=== PATIENT | female | born 2000 | race Caucasian/White ===

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

== ENCOUNTER → 2021-08-20 | Outpatient (CLI) | payer BC | END | disposition home or self-care (01) | LOC: LABWHC1 10:23 | PROVIDERS: ATTEND Orthopaedic Surgery | DX: S90.31XD Contusion of right foot, subsequent encounter (principal); S92.214D Nondisplaced fracture of cuboid bone of right foot, subsequent encounter for fracture with routine healing; V89.2XXD Person injured in unspecified motor-vehicle accident, traffic, subsequent encounter | CPT/HCPCS: 36415; 82306 ==

== ENCOUNTER → 2024-01-05 | Outpatient (CLI) | payer BC ==
[2024-01-05 15:37] LABS: ALT 11 U/L (8-44); AST 16 U/L (13-35); HCG,Quantitative Serum <3.0 mIU/mL (0.0-6.0)
[2024-01-05 15:57] LABS: Basophils # (A) 0.07 X 10*3/uL (0.00-0.10); Basophils % (A) 0.9 %; Eosinophils # (A) 0.06 X 10*3/uL (0.04-0.35); Eosinophils % (A) 0.8 %; HCT 41.1 % (37.2-46.3); HGB 13.9 g/dL (12.0-15.0); Lymphocytes # (A) 2.25 X 10*3/uL (0.90-5.00); Lymphocytes % (A) 28.2 %; MCH 31.6 pg (27.0-32.0); MCHC 33.8 g/dL (32.0-37.0); MCV 93.4 FL (80.0-97.0); Mean Platelet Volume 10.4 FL (9.5-12.2); Monocytes # (A) 0.65 X 10*3/uL (0.20-1.00); Monocytes % (A) 8.2 %; NRBC Per 100 WBC 0 X 10*3/uL (0.00-0.01); Neutrophils # (A) 4.92 X 10*3/uL (1.80-7.70); Neutrophils % (A) 61.6 %; Platelet Count 369 X 10*3/uL (140-440); RDW 12.2 % (11.5-14.5); WBC 7.97 X 10*3/uL (4.50-10.00)
== END | disposition home or self-care (01) ==
LOC: LABWHC1 09:56
PROVIDERS: ATTEND Nurse Practitioner
DX: L70.0 Acne vulgaris (principal); Z79.899 Other long term (current) drug therapy
CPT/HCPCS: 36415; 82465; 84450; 84460; 84478; 84702; 85025

== ENCOUNTER → 2024-02-07 | Outpatient (CLI) | payer BC | END | disposition home or self-care (01) | LOC: LABWHC1 15:39 | DX: L70.0 Acne vulgaris (principal); Z79.899 Other long term (current) drug therapy | CPT/HCPCS: 36415; 82465; 84478 ==

== ENCOUNTER → 2024-04-03 | Outpatient (CLI) | payer BC ==
[2024-04-03 15:03] LABS: Basophils # (A) 0.06 X 10*3/uL (0.00-0.10); Basophils % (A) 0.6 %; Eosinophils # (A) 0.04 X 10*3/uL (0.04-0.35); Eosinophils % (A) 0.4 %; HCT 43.5 % (37.2-46.3); HGB 14.3 g/dL (12.0-15.0); Lymphocytes # (A) 2.03 X 10*3/uL (0.90-5.00); Lymphocytes % (A) 19.5 %; MCHC 32.9 g/dL (32.0-37.0); MCV 94.2 FL (80.0-97.0); Mean Platelet Volume 10.6 FL (9.5-12.2); Monocytes # (A) 0.77 X 10*3/uL (0.20-1.00); Monocytes % (A) 7.4 %; NRBC Per 100 WBC 0 X 10*3/uL (0.00-0.01); Neutrophils % (A) 71.8 %; Platelet Count 386 X 10*3/uL (140-440); RBC 4.62 X 10*6/uL (4.10-5.20); RDW 12.4 % (11.5-14.5); WBC 10.43 X 10*3/uL (4.50-10.00)
[2024-04-03 15:52] LABS: ALT 12 U/L (8-44); AST 15 U/L (13-35); HCG,Quantitative Serum <3.0 mIU/mL (0.0-6.0)
== END | disposition home or self-care (01) ==
LOC: LABWHC1 10:51
PROVIDERS: ATTEND Dermatology Procedural Dermatology
DX: L70.0 Acne vulgaris (principal)
CPT/HCPCS: 36415; 82465; 84450; 84460; 84478; 84702; 85025

== ENCOUNTER → 2024-10-23 | Outpatient (CLI) | payer BC ==
[2024-10-23 03:00] LABS: ALT 24 U/L (4-34); AST 25 U/L (14-36); African American GFR (CKD) >90 (>60 ml/min/1.73 sqM); Albumin 4.9 g/dL (3.5-5.0); Alkaline Phosphatase 61 U/L (38-126); Anion Gap 12 mmol/L; Blood Urea Nitrogen 11 mg/dL (7-17); Carbon Dioxide 24 mmol/L (22-30); Chloride 103 mmol/L (98-107); Glucose 105 mg/dL (74-99); Non-African American GFR(CKD) >90 (>60 ml/min/1.73 sqM); Potassium 3.8 mmol/L (3.5-5.1); Sodium 139 mmol/L (137-145); Total Bilirubin 0.4 mg/dL (0.2-1.3); Total Protein 7.6 g/dL (6.3-8.2)
== END | disposition home or self-care (01) ==
LOC: EC 00:32
PROVIDERS: ATTEND Internal Medicine Gastroenterology
DX: R16.0 Hepatomegaly, not elsewhere classified (principal)
CPT/HCPCS: 36415; 80053

== ENCOUNTER 2024-12-23 07:04 | Emergency (ER) | payer BC ==
--- NOTE | 2024-12-23 07:29 | ED ---
General Adult HPI - General Chief complaint: Abdominal Pain Stated complaint: Abd Pain Time Seen by Provider: 12/23/24 07:06 Source: patient Mode of arrival: ambulatory Limitations: no limitations - History of Present Illness Initial comments: Dictation was produced using [employer] dictation software. please excuse any grammatical, word or spelling errors. Chief Complaint: 24-year-old female with several hours of abdominal pain History of Present Illness: Patient 24-year-old female presents emergency department several hours of abdominal pain. Patient has been ongoing abdominal issues for the last several months. Has been seeing GI doctor was told that she has irritable bowel syndrome. Patient complaining of lower abdominal pain for last 2 to 3 hours. States that the pain is more severe than her usual abdominal pain. She has been trying to have a bowel movement however unable to do so. States that pain is so severe that it is causing her to lay on the floor. She has been nauseated but has not had any significant vomiting. Denies any fever chills or night sweats. Patient denies . The ROS documented in this emergency department record has been reviewed and confirmed by me. Those systems with pertinent positive or negative responses have been documented in the HPI. All other systems are other negative and/or noncontributory. - Related Data Home Medications Medication Instructions Recorded Confirmed Dextroamphetamine/Amphetamine 15 mg PO BID 12/21/20 12/31/20 [Adderall] Non Formulary Drug 1 each PO ONCE 12/21/20 12/31/20 EPINEPHrine (Auto Inject) [Epipen] 0.3 mg IM ONCE PRN 12/31/20 12/31/20 Mirtazapine [Remeron] 15 mg PO HS 12/31/20 12/31/20 Allergies Allergy/AdvReac Type Severity Reaction Status Date / Time Milk Containing Products Allergy Swelling Verified 12/23/24 07:06 (Dairy) [Dairy] venom-honey bee Allergy Anaphylaxis Verified 12/23/24 07:06 [bee venom (honey bee)] Review of Systems ROS Statement: Those systems with pertinent positive or pertinent negative responses have been documented in the HPI. ROS Other: All systems not noted in ROS Statement are negative. Past Medical History Past Medical History: No Reported History Additional Past Medical History / Comment(s): popliteal cyst, IBS History of Any Multi-Drug Resistant Organisms: None Reported Past Surgical History: No Surgical Hx Reported Additional Past Surgical History / Comment(s): dental extraction -wisdom teeth Past Anesthesia/Blood Transfusion Reactions: No Reported Reaction Past Psychological History: ADD/ADHD Smoking Status: Never smoker Past Alcohol Use History: None Reported Past Drug Use History: None Reported - Past Family History Mother Family Medical History: No Reported History General Exam - General Exam Comments Initial Comments: PHYSICAL EXAM: General Impression: Alert and oriented x3, not in acute distress HEENT: Normocephalic atraumatic, extra-ocular movements intact, pupils equal and reactive to light bilaterally, mucous membranes moist. Cardiovascular: Heart regular rate and rhythm Chest: Able to complete full sentences, no retractions, no tachypnea Abdomen: abdomen soft, lower palpatory abdominal tenderness non-distended, no organomegaly Musculoskeletal: Pulses present and equal in all extremities, no peripheral rona ma Motor: no focal deficits noted Neurological: CN II-XII grossly intact, no focal motor or sensory deficits noted Skin: Intact with no visualized rashes Psych: Normal affect and mood Limitations: no limitations Course Vital Signs 12/23/24 12/23/24 07:07 09:46 Temperature 98 F Pulse Rate 79 84 Respiratory 18 16 Rate Blood Pressure 131/81 118/61 O2 Sat by Pulse 100 100 Oximetry Medical Decision Making - Medical Decision Making Was pt. sent in by a medical professional or institution ([facility], CIN[employer] OR THEATRE MANAGER, urgent care, hospital, or fci...) When possible be specific @ -No Did you speak to anyone other than the patient for history (EMS, parent, family, police, friend...)? What history was obtained from this source @ -No Did you review nursing and triage notes (agree or disagree)? Why? @ -I reviewed and agree with nursing and triage notes Were old charts reviewed (outside hosp., previous admission, EMS record, old EKG, old radiological studies, urgent care reports/EKG's, fci records)? Report findings @ -No old charts were reviewed Differential Diagnosis (chest pain, altered mental status, abdominal pain women, abdominal pain men, vaginal bleeding, musculoskeletal, weakness, fever, dyspnea, syncope, headache, dizziness, GI bleed, back pain, seizure, CVA, palpatations, mental health)? @ -Differential Abdominal Pain Women: Appendicitis, Cholecystitis, diverticulosis, ischemic bowel, pancreatitis, hepatitis, UTI, gastroenteritis, AAA, incarcerated hernia, bowel obstruction, constipation, inflammatory bowel, hepatitis, peptic ulcer disease, splenic infarction, perforated viscus, vulvitis, ovarian torsion, PID, kidney stone, placenta abruption, this is not meant to be an all-inclusive list EKG interpreted by me (3pts min.). @ -None done X-rays interpreted by me (1pt min.). @ -None done CT interpreted by me (1pt min.). @ -CT abdomen pelvis shows peritoneal fluid likely secondary to ruptured ovarian cyst U/S interpreted by me (1pt. min.). @ -None done What testing was considered but not performed or refused? (CT, X-rays, U/S, labs)? Why? @ -None What meds were considered but not given or refused? Why? @ -None Was smoking cessation discussed for >3mins.? @ -No Were there social determinants of health that impacted care today? How? (Homelessness, low income, unemployed, alcoholism, drug addiction, transportation, low edu. Level, literacy, decrease access to med. care, prison, rehab)? @ -No Was there de-escalation of care discussed even if they declined (Discuss DNR or withdrawal of care, Hospice)? DNR status @ -No What co-morbidities impacted this encounter? (DM, HTN, Smoking, COPD, CAD, Canc er, CVA, ARF, Chemo, Hep., AIDS, mental health diagnosis, sleep apnea, morbid obesity)? @ -None Was patient admitted / discharged? Hospital course, mention meds given and route, prescriptions, significant lab abnormalities, going to OR and other pertinent info. @ -24-year-old non female presents emergency department abdominal pain. Was told that she had IBS by GI specialist. Laboratory evaluation is unremarkable. CT abdomen shows fluid in the cul-de-sac likely representing ruptured ovarian cyst. Reevaluated bedside stable condition. Advised follow-up with diversional therapist Did you discuss the management of the patient with other professionals (professionals i.e. , PA, [employer]IN[employer] THEATRE MANAGER, lab, RT, psych nurse, licensed clinical social worker, fabric stretcher, teacher, property and supply officer, home health care case manager)? Give summary @ -No Was critical care preformed (if so, how long)? @ -No Undiagnosed new problem with uncertain prognosis? @ -No Drug Therapy requiring intensive monitoring for toxicity (Heparin, Nitro, Insulin, Cardizem)? @ -No Were any procedures done? @ -No Diagnosis/symptom? Acute, or Chronic, or Acute on Chronic? Uncomplicated (without systemic symptoms) or Complicated (systemic symptoms)? @ -Ruptured ovarian cyst Side effects of treatment? @ -No Exacerbation, Progression, or Severe Exacerbation? @ -No Poses a threat to life or bodily function? How? (Chest pain, [place], [place], pneumonia, PE, COPD, DKA, ARF, appy, cholecystitis, CVA, Diverticulitis, Homicidal, Suicidal, threat to staff... and all critical care pts) @ -No - Lab Data Result diagrams: 12/23/24 07:31 12/23/24 07:31 Lab Results 12/23/24 12/23/24 Range/Units 07:31 07:31 WBC 11.17 H (4.50-10.00) 10*3/uL RBC 4.38 (4.10-5.20) 10*6/uL Hgb 13.7 (12.0-15.0) g/dL Hct 39.2 (37.2-46.3) % MCV 89.5 (80.0-97.0) fL MCH 31.3 (27.0-32.0) pg MCHC 34.9 (32.0-37.0) g/dL Plt Count 361 (140-440) 10*3/uL MPV 9.4 L (9.5-12.2) fL Immature Gran % (Auto) 0.4 % Neutrophils % 50.4 % Lymphocytes % 37.4 % Monocytes % 10.2 % Eosinophils % 1.1 % Basophils % 0.5 % Immature Gran # 0.04 (0.00-0.04) 10*3/uL Neutrophils # 5.63 (1.80-7.70) 10*3/uL Lymphocytes # 4.18 (0.90-5.00) 10*3/uL Monocytes # 1.14 H (0.20-1.00) 10*3/uL Eosinophils # 0.12 (0.04-0.35) 10*3/uL Basophils # 0.06 (0.00-0.10) 10*3/uL Sodium 138 (137-145) mmol/L Potassium 4.0 (3.5-5.1) mmol/L Chloride 104 (98-107) mmol/L Carbon Dioxide 23 (22-30) mmol/L Anion Gap 11 mmol/L BUN 8 (7-17) mg/dL Creatinine 0.61 (0.52-1.04) mg/dL Est GFR (CKD-EPI)AfAm >90 (>60 ml/min/1.73 sqM) Est GFR (CKD-EPI)NonAf >90 (>60 ml/min/1.73 sqM) Glucose 91 (74-99) mg/dL Calcium 9.9 (8.4-10.2) mg/dL Total Bilirubin 0.6 (0.2-1.3) mg/dL AST 20 (14-36) U/L ALT 11 (4-34) U/L Alkaline Phosphatase 53 (38-126) U/L Total Protein 7.1 (6.3-8.2) g/dL Albumin 4.6 (3.5-5.0) g/dL Lipase 173 (23-300) U/L HCG, Quant <2.4 mIU/mL Disposition Clinical Impression: Ruptured ovarian cyst Disposition: HOME SELF-CARE Condition: Fair Instructions (If sedation given, give patient instructions): Ruptured Ovarian Cyst (ED) Is patient prescribed a controlled substance at d/c from ED?: No Referrals: Keri Brand MD [STAFF PHYSICIAN] - 1-2 days Time of Disposition: 10:22
[2024-12-23] MEDS: SODIUM CHLORIDE 0.9% 1,000 ML IV STA (07:36)
[2024-12-23] MEDS: ONDANSETRON 4 MG/2 ML VIAL IVP STA (07:38)
[2024-12-23] MEDS: MORPHINE SULFATE 2 MG/ML SYRINGE IVP PRN (07:44)
[2024-12-23 07:47] LABS: Basophils # (A) 0.06 10*3/uL (0.00-0.10); Basophils % (A) 0.5 %; Eosinophils # (A) 0.12 10*3/uL (0.04-0.35); Eosinophils % (A) 1.1 %; HCT 39.2 % (37.2-46.3); HGB 13.7 g/dL (12.0-15.0); Lymphocytes # (A) 4.18 10*3/uL (0.90-5.00); Lymphocytes % (A) 37.4 %; MCH 31.3 pg (27.0-32.0); MCHC 34.9 g/dL (32.0-37.0); MCV 89.5 fL (80.0-97.0); Mean Platelet Volume 9.4 fL (9.5-12.2); Monocytes # (A) 1.14 10*3/uL (0.20-1.00); Monocytes % (A) 10.2 %; Neutrophils # (A) 5.63 10*3/uL (1.80-7.70); Neutrophils % (A) 50.4 %; Platelet Count 361 10*3/uL (140-440); RBC 4.38 10*6/uL (4.10-5.20); WBC 11.17 10*3/uL (4.50-10.00)
[2024-12-23 07:57] LABS: ALT 11 U/L (4-34); AST 20 U/L (14-36); African American GFR (CKD) >90 (>60 ml/min/1.73 sqM); Albumin 4.6 g/dL (3.5-5.0); Alkaline Phosphatase 53 U/L (38-126); Anion Gap 11 mmol/L; Blood Urea Nitrogen 8 mg/dL (7-17); Calcium 9.9 mg/dL (8.4-10.2); Carbon Dioxide 23 mmol/L (22-30); Chloride 104 mmol/L (98-107); Glucose 91 mg/dL (74-99); Lipase 173 U/L (23-300); Non-African American GFR(CKD) >90 (>60 ml/min/1.73 sqM); Sodium 138 mmol/L (137-145); Total Bilirubin 0.6 mg/dL (0.2-1.3); Total Protein 7.1 g/dL (6.3-8.2)
[2024-12-23 08:14] LABS: HCG,Quantitative Serum <2.4 mIU/mL
[2024-12-23] MEDS ORDERED: MORPHINE SULFATE 2 MG/ML SYRINGE IVP PRN (08:18)
--- NOTE | 2024-12-23 09:09 | CT ---
EXAMINATION TYPE: CT abdomen pelvis w con DATE OF EXAM: 12/23/2024 8:52 AM COMPARISON: None. 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 CT DLP: 823.7 mGycm, Automated exposure control for dose reduction was used. FINDINGS: LUNG BASES-: No visible nodule. No infiltrate. LIVER/GB: No calcified gallstones. No space occupying hepatic lesion. Biliary tree is of normal ca liber. PANCREAS: No inflammation. No distinct mass. SPLEEN: No splenic enlargement. No lesion seen. ADRENALS: No nodule. No thickening. KIDNEYS/BLADDER: No hydronephrosis. No nephrolithiasis. No distinct renal mass. Urinary bladder g rossly unremarkable. BOWEL: Normal appendix. Normal bowel caliber. No inflammation. GENITAL ORGANS: No gross abnormality. LYMPH NODES: No greater than 1cm abdominal or pelvic lymph nodes are appreciated. AORTA: No significant abnormality. OSSEOUS STRUCTURES: No significant abnormality is seen. OTHER: Moderate free fluid within the cul-de-sac measuring 6.7 x 4.3 cm. There is also fluid adjacent to the liver edge. The findings are likely related to a recently ruptured cyst. IMPRESSION: 1. Moderate free fluid within the cul-de-sac measuring 6.7 x 4.3 cm. There is also fluid adjacent to the liver edge. The findings are likely related to a recently ruptured cyst. [facility], , 12/23/2024 9:06 AM
[2024-12-23 09:47] VITALS: RESP 16
[2024-12-23 10:51] VITALS: BP 108/56; PULSE 73; TEMP 97.9
[2024-12-23] MEDS: traMADol 50 MG STARTER PACK 3 TAB BTL PO STA (10:51)
== END 2024-12-23 11:11 | disposition home or self-care (01) ==
LOC: EC 07:04
DX: N83.8 Other noninflammatory disorders of ovary, fallopian tube and broad ligament (principal); Z91.011 Allergy to milk products; Z91.030 Bee allergy status
CPT/HCPCS: 36415; 80053; 83690; 85025; 84702; 74177; 99284; 96374; 96375; 96361; J2405; J2270; Q9967

== ENCOUNTER → 2024-12-25 | Outpatient (CLI) | payer BC ==
--- NOTE | 2024-12-25 07:37 | US ---
EXAMINATION TYPE: US abdomen limited DATE OF EXAM: 12/25/2024 COMPARISON: CT abdomen pelvis 12/23/2024, abdominal ultrasound 08/12/2024 CLINICAL INDICATION: Female, 24 years old with history of R10.819 ABD PAIN; recent rupture of ovarian cyst, FF on CT in Wallace's pouch TECHNIQUE: Grayscale and color Doppler imaging of the right upper quadrant was performed. FINDINGS: EXAM MEASUREMENTS: Liver Length: 15.5 cm Gallbladder Wall: 0.3 cm CBD: 0.6 cm Right Kidney: 11.2 x 4.5 x 3.7 cm Pancreas: wnl Liver: wnl Gallbladder: fold seen, wnl Evidence for sonographic Patterson's sign: no CBD: wnl Right Kidney: wnl The pancreas and liver are within normal limits. Common bile duct is unremarkable. The right kidney d emonstrates no hydronephrosis, shadowing calculus or solid mass. Negative sonographic Patterson's sign. Gallbladder demonstrates no wall thickening, stones or surrounding fluid. No free fluid within the ri ght upper quadrant. IMPRESSION: No ultrasound evidence for acute process. [facility], , 12/25/2024 7:35 AM
== END | disposition home or self-care (01) ==
LOC: RADUSWWP 07:06
PROVIDERS: ATTEND Physician Assistant
DX: R10.819 Abdominal tenderness, unspecified site (principal)
CPT/HCPCS: 76705

== ENCOUNTER → 2025-01-14 | Outpatient (CLI) | payer BC ==
[2025-01-14 18:38] LABS: Basophils # (A) 0.07 X 10*3/uL (0.00-0.10); Basophils % (A) 1.1 %; Eosinophils # (A) 0.05 X 10*3/uL (0.04-0.35); Eosinophils % (A) 0.8 %; HCT 41.5 % (37.2-46.3); HGB 13.8 g/dL (12.0-15.0); Immature Grans, Automated 0.30 %; Lymphocytes # (A) 2.22 X 10*3/uL (0.90-5.00); Lymphocytes % (A) 34.0 %; MCH 30.7 pg (27.0-32.0); MCHC 33.3 g/dL (32.0-37.0); MCV 92.4 FL (80.0-97.0); Monocytes # (A) 0.58 X 10*3/uL (0.20-1.00); Monocytes % (A) 8.9 %; NRBC Per 100 WBC 0 X 10*3/uL (0.00-0.01); Neutrophils # (A) 3.59 X 10*3/uL (1.80-7.70); Neutrophils % (A) 54.9 %; Platelet Count 360 X 10*3/uL (140-440); RBC 4.49 X 10*6/uL (4.10-5.20); RDW 12.5 % (11.5-14.5); WBC 6.53 X 10*3/uL (4.50-10.00)
[2025-01-14 18:49] LABS: ALT 13.0 U/L (8-44)
[2025-01-14 18:50] LABS: AST 18.0 U/L (13-35); Cholesterol 157.0 mg/dL (0.00-200.00); Triglycerides 46.8 mg/dL (0.00-149.00)
== END | disposition home or self-care (01) ==
LOC: LABWHC1 13:38
PROVIDERS: ATTEND Dermatology MOHS-Micrographic Surgery
DX: L70.0 Acne vulgaris (principal); L85.3 Xerosis cutis; K13.0 Diseases of lips; Z79.899 Other long term (current) drug therapy
CPT/HCPCS: 36415; 82465; 84450; 84460; 84478; 85025